=== PATIENT | male | born 1955 | race Hispanic/Latino ===

== ENCOUNTER → 2019-08-12 | Outpatient (CLI) | payer OTHER ==
[~2019-08-12] MED LIST: BYSTOLIC10 MG PO; GLIMEPIRIDE2 MG PO; GLIPIZIDE-METF1 EAC2 PO; JARDIANCE10 MG; JARDIANCE25 MG PO; LISINOPRIL10 MG PO; OMEGA 3 1,0001 EACH PO; PIOGLITAZONE HC45 MG PO
--- NOTE | 2019-08-16 07:38 | NUR ---
per dr tom/dr emery, called patient to inform him of positive covid19 test results, pt verbalized understanding, instructed him to follow up with primary care dr, pt stated that he was canceling the procedure anyway because he was in [place] for an emergency
== END | disposition home or self-care (01) ==
LOC: DX 10:23 → EDSTATUS 08-16 18:30
PROVIDERS: ATTEND Ophthalmology
DX: H11.061 Recurrent pterygium of right eye (principal); Z01.812 Encounter for preprocedural laboratory examination; Z11.59 Encounter for screening for other viral diseases; Z53.9 Procedure and treatment not carried out, unspecified reason
CPT/HCPCS: U0002